=== PATIENT | female | born 1985 | race Caucasian/White ===

== ENCOUNTER 2019-05-24 21:18 | Emergency (ER) | payer BC ==
[~2019-05-24] VITALS: Ht 154.9 cm; Wt 83.9 kg
[~2019-05-24 21:18] MED LIST: FIORINAL 50-321 EACH PO; MEDROL DOSPAK21 TA1 PO; NOHOMEMEDICATIONS; PROMETHAZINE12.5 M4 RE; RELAFEN500 MG PO
[2019-05-24] MEDS ORDERED: FLUOXETINE HCL20 M1 PO (21:47)
[2019-05-24 21:51] LABS: INFLUENZA A ANTIGEN Negative (Negative)
[2019-05-24] MEDS ORDERED: ZOFRAN ODT4 MG PO (22:24)
[2019-05-24] MEDS ORDERED: TAMIFLU75 MG PO (22:24)
[2019-05-24 22:50] VITALS: BP 120/73
== END 2019-05-24 22:51 | disposition home or self-care (01) ==
LOC: M.ERS 21:18
PROVIDERS: Emergency Medicine
DX: J10.1 Influenza due to other identified influenza virus with other respiratory manifestations (principal); Z90.49 Acquired absence of other specified parts of digestive tract; Z98.890 Other specified postprocedural states